=== PATIENT | male | born 1970 | race Caucasian/White ===

== ENCOUNTER 2017-02-13 11:10 | Emergency (ER) | payer MEDICAID, OTHER ==
[~2017-02-13] VITALS: Ht 162.6 cm; Wt 74.8 kg
[2017-02-13 11:23] VITALS: BP 146/95
--- NOTE | 2017-02-13 12:03 | NUR ---
GAYATHRI 100. LAUR[employer] AWARE.
== END 2017-02-13 12:37 | disposition home or self-care (01) ==
LOC: ER 11:15
DX: J02.8 Acute pharyngitis due to other specified organisms (principal); B97.89 Other viral agents as the cause of diseases classified elsewhere; M71.22 Synovial cyst of popliteal space [Baker], left knee; F17.200 Nicotine dependence, unspecified, uncomplicated; Z88.0 Allergy status to penicillin; R35.8 Other polyuria; R63.1 Polydipsia; R63.2 Polyphagia
CPT/HCPCS: 82962-TC; A4606; Z7610